=== PATIENT | female | born 1955 | race Caucasian/White ===

== ENCOUNTER → 2016-08-09 | Outpatient (CLI) | payer OTHER ==
--- NOTE | 2016-08-09 17:03 | MR ---
EXAMINATION TYPE: MR lumbar spine wo con DATE OF EXAM: 08/09/2016 COMPARISON: Outside MRI lumbar spine June 20, 2015. Outside report not available for comparison. HISTORY: Low back pain per order. Low back pain for 18 months after fall injury radiating into left b uttocks per patient. TECHNIQUE: Multiplanar, multisequence imaging of the lumbar spine is performed without IV contrast. FINDINGS: Sagittal images of the lumbar spine show vertebral body heights and alignment to appear sat isfactory. Multilevel disc desiccation is redemonstrated. This space heights are fairly well-maintai hermlia. Posterior disc herniation L4-L5 level is redemonstrated on sagittal images The conus medullaris is slightly high in position ending at inferior T12 vertebral body level, not significantly changed f rom prior study. No abnormal signal is evident. No suspicious clumping of lumbosacral nerve roots is seen. The bone marrow signal intensity is within normal limits. Minimal multilevel anterior spurring is redemonstrated. Axial images show the T12-L1 level to appear within normal limits. Axial images at L1-L2 level show mild facet arthropathy bilaterally but spinal canal is preserved and bilateral neural foramina are patent. Axial images at L2-L3 show mild to moderate facet degenerative changes bilaterally but spinal canal i s preserved and bilateral neural foramina are patent. Axial images at L3-L4 level show mild/moderate facet degenerative changes and ligament flavum hypertr ophy. In addition there is mild broad disc bulge mildly effacing anterior thecal sac on axial image 1 3. Bilateral neural foramina remain patent. Axial images at L4-L5 level show mild to moderate facet degenerative changes bilaterally. There is re demonstration of right foraminal disc protrusion on axial image 8 effacing the right lateral recess. There is mild to moderate right-sided anterior inferior neural foraminal narrowing appears to be encr oachment along anterior inferior margin of right L4 nerve on sagittal image 10 similar to prior study . Left-sided neural foramen is patent. Axial images at L5-S1 level show mild facet degenerative changes bilaterally. Spinal canal is preserv ed and bilateral neural foramina are patent. No suspicious retroperitoneal findings identified. IMPRESSION: Overall stable findings, multilevel degenerative changes lumbar spine as detailed above, most prominent findings L4-L5 level where right foraminal disc protrusion effaces lateral recess in e ncroaches along the anterior inferior margin of the right L4 nerve.
== END | disposition home or self-care (01) ==
LOC: RADMRIMAIN 12:36
PROVIDERS: ATTEND Nurse Practitioner Acute Care
DX: M51.26 Other intervertebral disc displacement, lumbar region (principal); M47.816 Spondylosis without myelopathy or radiculopathy, lumbar region; Z88.0 Allergy status to penicillin
CPT/HCPCS: 72148